=== PATIENT | female | born 1965 | race Caucasian/White ===

== ENCOUNTER → 2018-07-13 | Day surgery (SDC) | payer OTHER ==
[~2018-07-13] MED LIST: ACETAMINOPHEN 1000 MG/100 ML IV ONE; ARIMIDEX1 MG; BENICAR20 MG PO; BUPIVACAINE HCL 0.5% INJ 30 ML VIAL INJ ONE; BUSPIRONE HCL5 MG PO; CALCIUM 500+D1 EACH; CEFAZOLIN SOD 1 GM/D5W 50ML 50 ML IV ONE; DEXAMETHASONE SOD PHOS INJ 4 MG/ML VIAL ONE; DEXILANT60 MG; EFFEXOR XR 3737.5 MG; FENTANYL CITRATE/PF 100MCG/2 ML INJ ONE; FENTANYL1 EAC1; HYDROMORPHONE HC2 MG PO; KETOROLAC TROMETHAMINE 30 MG/ML VIAL ONE; LIDOCAINE HCL 2% LOCAL INJ 5 ML SDV VIAL INJ ONE; MIDAZOLAM HCL 2 MG/2 ML VIAL ONE; MUPIROCIN 2% OINT 22 GM TUBE ONE; ONDANSETRON HCL INJ 2 MG/ML VIAL ONE; PROPOFOL IV EMULSION 10 MG/ML 20 ML VIAL ONE; SEVOFLURANE INHAL SOLN 250 ML PEN BTL ONE; SYNTHROID50 MCG PO; TRIAMCINOLONE ACET 40 MG/ML VIAL ONE; VITAMIN D3400 UNIT
[2018-07-13 10:00] VITALS: BP 122/62
--- NOTE | 2018-07-13 14:05 | Operative Report ---
DATE OF PROCEDURE: July 13, 2018 PREOPERATIVE DIAGNOSES 1. Left and right carpal tunnel syndrome. 2. Osteoarthritis right carpometacarpal joint. POSTOPERATIVE DIAGNOSES 1. Left and right carpal tunnel syndrome. 2. Flexor tenosynovitis left and right wrists. 3. Osteoarthritis right carpometacarpal joint. PROCEDURES 1. Left and right open carpal tunnel releases. 2. Flexor tenosynovectomy left and right wrists. 3. Kenalog injection right carpometacarpal joint. ANESTHESIA:General. HISTORY: The patient is a 53-year-old female with EMG-proven left and right carpal tunnel syndrome. Risks, benefits and alternatives of treatment were discussed with the patient. The patient is prepared to undergo the procedure as outlined. PROCEDURE: The patient was brought to the operating theater. After the induction of adequate general inhalation anesthesia, the patient was prepped and draped in the supine position. A time out was performed by the entire operating room team. A 2.5-cm incision was marked out in the intrathenar space. The left and right upper extremities were exsanguinated, and a tourniquet was inflated to a pressure of 250 mmHg. The incision was made through the skin and subcutaneous tissues, and all venous tributaries were controlled with bipolar cautery. The incision was deepened through the palmar fascia until the transverse carpal ligament was identified. The ligament was sharply sectioned, taking care to protect and preserve the median nerve underlying it. After the complete width of the ligament had been transected, the distal volar forearm fascia was divided under direct view. Proliferative flexor tenosynovium was noticed to encompass the median nerve, and this was radically excised. After performing this maneuver, the nerve was noted to lie adequately decompressed. The wound was copiously irrigated with bacteriostatic saline, closed with 5-0 nylon in an interrupted horizontal mattress fashion. A Marcaine field block was performed at the operative site. Tourniquet was deflated. All of the fingers pinked up nicely. A mixture of 1 mL of 0.5% plain Marcaine was mixed with 1 mL of 40 mg/mL of Kenalog, and this was injected via a 25-gauge needle into the right CMC joint. A sterile bulking conforming bandage was applied to each hand and wrist. A fiberglass splint was fashioned to maintain the wrists in a modest amount of extension. This was held in place with a loosely wrapped Fred wrap. The patient tolerated the procedure well and was brought to the recovery room in satisfactory condition and discharged with a postoperative instruction sheet as well as a followup appointment. Job#: [id number]
== END | disposition home or self-care (01) ==
LOC: OR 05:39 → EDBD 07:30
PROVIDERS: ATTEND Plastic Surgery
DX: M65.842 Other synovitis and tenosynovitis, left hand (principal); M65.841 Other synovitis and tenosynovitis, right hand; G56.03 Carpal tunnel syndrome, bilateral upper limbs; M18.11 Unilateral primary osteoarthritis of first carpometacarpal joint, right hand; C50.919 Malignant neoplasm of unspecified site of unspecified female breast; C79.51 Secondary malignant neoplasm of bone; E03.9 Hypothyroidism, unspecified; I10 Essential (primary) hypertension; F41.9 Anxiety disorder, unspecified; Z88.3 Allergy status to other anti-infective agents; Z01.810 Encounter for preprocedural cardiovascular examination
CPT/HCPCS: 20600; 25115; 93005; J0131; J0690; J1100; J1885; J2001; J2250; J2405; J2704; J3301